=== PATIENT | female | born 1970 | race Hispanic/Latino ===

== ENCOUNTER 2017-09-25 23:25 | Emergency (ER) | payer BC ==
[2017-09-25] MEDS ORDERED: ZOFRAN ODT ONE (23:34)
[2017-09-25] MEDS ORDERED: ZOFRAN ODT PO ONE (23:37)
[2017-09-26 00:05] LABS: Basophils % (Auto) 0.4 % (0.0-1.8); Eosinophils # (Auto) 0.1 K/mm3 (0.0-0.4); Eosinophils % (Auto) 0.9 % (0.0-4.3); Hemoglobin 13.6 gm/dl (10.1-14.3); Lymphocytes # (Auto) 2.2 K/mm3 (1.2-5.4); Lymphocytes % (Auto) 20.4 % (13.4-35.0); Monocytes # (Auto) 1.1 K/mm3 (0.0-0.8); Monocytes % (Auto) 10.4 % (0.0-7.3)
[2017-09-26 00:17] LABS: Hematocrit 39.9 % (30.3-42.9); Mean Corpuscular HGB Conc 34 % (30-34); Mean Corpuscular Hemoglobin 34 pg (28-32); Mean Corpuscular Volume 102 fl (79-97); Platelet Count 264 K/mm3 (140-440); Red Blood Count 3.91 M/mm3 (3.65-5.03); Red Cell Distribution Width 12.8 % (13.2-15.2)
[2017-09-26 00:30] LABS: Alanine Aminotransferase 30 units/L (7-56); Albumin 4.9 g/dL (3.9-5); BUN/Creatinine Ratio 8; Blood Urea Nitrogen 4 mg/dL (7-17); Calcium 9.1 mg/dL (8.4-10.2); Hemolysis Index 50
[2017-09-26 00:48] LABS: Bilirubin,Urine NEG (Negative); Blood,Urine MOD (Negative); Color,Urine Yellow (Yellow); Mucus,Urine 3+ /HPF; Urobilinogen,Urine < 2.0 mg/dL (<2.0)
[2017-09-26 00:58] LABS: HCG Qualitative,Urine Negative (Negative)
[2017-09-26] MEDS ORDERED: ZOFRAN IV ONE (01:55)
[2017-09-26] MEDS ORDERED: BENTYL PO ONE (01:55)
[2017-09-26] MEDS ORDERED: LIDOCAINE VISCOUS 2% PO ONE (01:55)
[2017-09-26] MEDS ORDERED: ALUM-MAG HYDROX-SIMETH 200-200-20MG/5ML PO ONE (01:55)
[2017-09-26] MEDS ORDERED: NACL 0.9% 1000 ML 1,000 ML IV ONE (01:55)
--- NOTE | 2017-09-26 01:57 | Emergency Department Report ---
Vomiting/Diarrhea - HPI Chief Complaint: Nausea/Vomiting/Diarrhea Stated Complaint: N/V/D Time Seen by Provider: 09/26/17 00:48 Duration: Today Severity: moderate Nausea/Vomiting Severity: Moderate Diarrhea Severity: Moderate Pain Severity: None Symptoms: Yes Watery Diarrhea (started at 8 AM), Yes Able to Tolerate Fluids, Yes Recent Unusual Foods (recent travel. Family just coming back from vacation) , No Bloody diarrhea, No Fever, No Recent Untreated Water, No Recent use of Antibiotics, No Family w/ Similar Symptoms, No Contacts w/ Similar Symptoms, No Rash, No Hematuria, No Recent URI Symptoms Other History: This is a 47-year-old female who reports to the hospital for that she's been having nausea vomiting and diarrhea since 8 AM today since she woke up. Family is traveling from [place]. She says she vomited twice in emergency room and she was given Zofran and she feels a little better. Patient denies any abdominal pain. She is unsure if she came in contact with any tainted food or water. Her family is not having any symptoms. Pain is 0-10. She says she has a urinary tract infection 2 to go and she was treated and she is not having any symptoms like she was before. Denies any back pain. Denies any fever or chills. She took [id number] medication but it didn't help. Nothing makes symptoms worse and nothing makes it better. Denies any blood in her vomit or diarrhea. ED Review of Systems ROS: Stated complaint: N/V/D Other details as noted in HPI Constitutional: denies: chills, fever Eyes: denies: eye pain, eye discharge, vision change ENT: denies: ear pain, throat pain, congestion Respiratory: denies: cough, shortness of breath, SOB with exertion, SOB at rest , stridor, wheezing Cardiovascular: denies: chest pain, palpitations, edema, syncope Gastrointestinal: nausea, vomiting, diarrhea. denies: abdominal pain, constipation, hematemesis, melena, hematochezia Genitourinary: denies: urgency, dysuria, frequency, hematuria, discharge Musculoskeletal: denies: back pain, joint swelling, arthralgia, myalgia Skin: denies: rash, lesions Neurological: denies: headache, weakness, numbness, paresthesias, abnormal gait , vertigo ED Past Medical Hx - Past Medical History Previous Medical History?: No - Surgical History Past Surgical History?: No - Family History Family history: hypertension - Social History Smoking Status: Current Every Day Smoker Substance Use Type: Alcohol (socially) Other Social History: and lives with family - Medications Home Medications: Home Medications Medication Instructions Recorded Confirmed Last Taken Type Dicyclomine [Bentyl] 20 mg PO QID 3 Days #12 tablet 09/26/17 Unknown Rx Promethazine [Phenergan TAB] 25 mg PO Q6HR PRN #12 tab 09/26/17 Unknown Rx Vomiting Diarrhea Exam - Exam General: Vital signs noted. No distress. Alert and acting appropriately. For 7-year-old female well-nourished well-developed in no acute distress. HEENT: No Pharyngeal Erythema, No Pharyngeal Exudates, No Moist Mucous Membranes (lips are dry. Uvula midline and oral airways patent), No Rhinorrhea , No Conjuctival Injection, No Frontal Tenderness, No Maxillary Tenderness Neck: No Adenopathy, No Rigidity (full range of motion, no C-spine tenderness. Supple) Lungs: Yes Clear Lung Sounds (CTAB), Yes Good Air Exchange, No Wheezes, No Stridor, No Cough, No Nasal Flaring, No Retractions, No Use of Accessory Muscles Heart exam: Regular: Yes (S1, S2.), Murmur: No, Tachycardia: No Abdomen: Tenderness: No (nontender to palpate in all quadrants.), Peritoneal Signs: No, Distention: No, Hyperactive Bowel sounds: No (normal bowel sounds) Skin exam: Rash: No, Edema: No, Normal turgor: Yes Neurologic: Alert and oriented 3, normal gait, normal speech and GCS is 15. Normal reflexes Musculoskeletal: Unremarkable. Extremity: No clubbing, cyanosis or edema. +2 pulses. Extremities and no neurovascular compromise ED Course Vital Signs 09/25/17 23:29 Temperature 98.2 F Pulse Rate 98 H Respiratory 18 Rate Blood Pressure 163/88 O2 Sat by Pulse 100 Oximetry Vital Signs 18 09/26/17 23:29 02:57 Temperature 98.2 F Pulse Rate 98 H 88 Respiratory 18 17 Rate Blood Pressure 163/88 Blood Pressure 130/80 [Right] O2 Sat by Pulse 100 97 Oximetry - Reevaluation(s) Reevaluation #1: 09/26/17 02:03 Patient given Zofran 8 mg ODT and emergency room with minimal relief of nausea. She was started on IV fluid 1 L, Zofran 4 mg IV, Maalox 30 mls., Lidocaine 15 mils by mouth and then until 40 mg by mouth. I will reassess her. Her abdomen is nontender to palpate. She has no CVA tenderness. Labs reviewed. Reevaluation #2: 09/26/17 02:50 Patient reports that she is feeling much better and challenged in progress. Abdominal exam is normal. Patient looks better. Reevaluation #3: 09/26/17 03:17 Patient able to tolerate by mouth liquids to include nimesh juices and water without any nausea vomiting or diarrhea. She says she is feeling much better and ready to go. ED Medical Decision Making - Lab Data Result diagrams: 09/25/17 23:52 09/25/17 23:52 Lab Results 09/25/17 09/25/17 09/26/17 Range/Units 23:52 23:52 00:27 WBC 10.6 (4.5-11.0) K/mm3 RBC 3.91 (3.65-5.03) M/mm3 Hgb 13.6 (10.1-14.3) gm/dl Hct 39.9 (30.3-42.9) % MCV 102 H (79-97) fl MCH 34 H (28-32) pg MCHC 34 (30-34) % RDW 12.8 L (13.2-15.2) % Plt Count 264 (140-440) K/mm3 Lymph % (Auto) 20.4 (13.4-35.0) % Carver % (Auto) 10.4 H (0.0-7.3) % Eos % (Auto) 0.9 (0.0-4.3) % Baso % (Auto) 0.4 (0.0-1.8) % Lymph # 2.2 (1.2-5.4) K/mm3 Carver # 1.1 H (0.0-0.8) K/mm3 Eos # 0.1 (0.0-0.4) K/mm3 Baso # 0.0 (0.0-0.1) K/mm3 Seg Neutrophils % 67.9 (40.0-70.0) % Seg Neutrophils # 7.2 (1.8-7.7) K/mm3 Sodium 139 (137-145) mmol/L Potassium 4.2 (3.6-5.0) mmol/L Chloride 96.5 L (98-107) mmol/L Carbon Dioxide 23 (22-30) mmol/L Anion Gap 24 mmol/L BUN 4 L (7-17) mg/dL Creatinine 0.5 L (0.7-1.2) mg/dL Estimated GFR > 60 ml/min BUN/Creatinine Ratio 8 % Glucose 109 H (65-100) mg/dL Calcium 9.1 (8.4-10.2) mg/dL Total Bilirubin 0.90 (0.1-1.2) mg/dL AST 47 H (5-40) units/L ALT 30 (7-56) units/L Alkaline Phosphatase 74 (35-129) units/L Total Protein 7.6 (6.3-8.2) g/dL Albumin 4.9 (3.9-5) g/dL Albumin/Globulin Ratio 1.8 % Urine Color Yellow (Yellow) Urine Turbidity Clear (Clear) Urine pH 5.0 (5.0-7.0) Ur Specific [place] 1.021 (1.003-1.030) Urine Protein 100 mg/dl (Negative) mg/dL Urine Glucose (UA) Neg (Negative) mg/dL Urine Ketones Tr (Negative) mg/dL Urine Blood Mod (Negative) Urine Nitrite Neg (Negative) Urine Bilirubin Neg (Negative) Urine Urobilinogen < 2.0 (<2.0) mg/dL Ur Leukocyte Esterase Neg (Negative) Urine WBC (Auto) 7.0 H (0.0-6.0) /HPF Urine RBC (Auto) 6.0 (0.0-6.0) /HPF U Epithel Cells (Auto) 20.0 H (0-13.0) /HPF Urine Mucus 3+ /HPF Urine HCG, Qual Negative (Negative) - Medical Decision Making ED course: 47-year-old female here complaining of nausea vomiting and diarrhea that started at 8 AM this morning. Patient is just coming back from vacation from [place] and she cannot recall anything that she ate or drank that was tainted. Family is not experiencing any symptoms. I saw and examined patient and she is now stable after treatment in emergency room. CBC stable, minor abnormalities but no signs of infection., urinalysis with contamination, small amount of white blood cells without any leukocyte esterase or bacteria. She has moderate blood in her urine and reports that she had that when she had urinary tract infection. Trace ketone., CMP stable with minor abnormality. test is negative. Lab findings x-ray of the patient and she voiced understanding. A&P 1: Mild dehydration-patient given 1 L of normal saline in emergency room and orally hydrated with 3 cups of cranberry juice and a cup of water and able to tolerate without any nausea vomiting or diarrhea. 2: Nausea vomiting and diarrhea-resolved. Patient given Zofran 4 mg IV and prior to coming to the room she is given Zofran 8 mg ODT and she is better without any nausea or vomiting. Diarrhea has resolved since we did emergency room. Patient also given Bentyl 40 mg by mouth and lidocaine 15 mL and Maalox 30 mL in emergency room. Patient says she is feeling a lot better. Discharge home on antinausea medication and Bentyl Patient educated on Car diet to include banana, rice, applesauce and toast for the next 72 hours, her stomach down. She was also educated on food to eat to prevent diarrhea. Educated on drinking plenty of fluids including Gatorade Prescription for Bentyl, Phenergan given to patient Patient discharged home with her family in stable condition her vital signs are stable and she is afebrile. Patient to follow-up with her primary care which she does have 1 in 2 days for symptoms return before then to return to the emergency room. She voiced understanding. - Differential Diagnosis gastroenteritis, UTI, pancreatitis, gallbladder or liver disease. Critical care attestation.: If time is entered above; I have spent that time in minutes in the direct care of this critically ill patient, excluding procedure time. ED Disposition Clinical Impression: Nausea vomiting and diarrhea, Mild dehydration Disposition: DC-01 TO HOME OR SELFCARE Is pt being admited?: No Condition: Stable Instructions: Acute Nausea and Vomiting (ED), Acute Diarrhea (ED), Nutrition Tips for Relief of Diarrhea (ED), Dehydration (ED) Additional Instructions: Please increase fluid intake to 2to 3 liters of fluid daily to include Gatorade and water. return to emergency room if your symptoms worsen Take medication as prescribed Do not drive or operate heavy machinery while taking Phenergan at this medication causes drowsiness Follow up with primary care physician in 2 days Prescriptions: Dicyclomine [Bentyl] 20 mg PO QID 3 Days #12 tablet Promethazine [Phenergan TAB] 25 mg PO Q6HR PRN #12 tab PRN Reason: Nausea Referrals: PRIMARY CARE, [Primary Care Provider] - 09/28/17 [facility] [Provider Group] - 09/28/17 Forms: Accompanied Note, Work/School Release Form(ED)
[2017-09-26 02:58] VITALS: BP 130/80
== END 2017-09-26 04:15 | disposition home or self-care (01) ==
LOC: ED 23:25
DX: E86.0 Dehydration (principal); F17.200 Nicotine dependence, unspecified, uncomplicated
CPT/HCPCS: 36415; 80053; 81001; 81025; 85025; 96361; 96374; 99283; J2405; J7030; Q0162